=== PATIENT | male | born 1965 | race Caucasian/White ===

== ENCOUNTER → 2016-10-30 | Outpatient (CLI) | payer OTHER ==
--- NOTE | 2016-10-30 13:28 | US ---
Ultrasound Venous Duplex Doppler left Arm History: Left neck swelling, previous neck cancer and surgery. Findings: Ultrasound venous duplex/Doppler imaging of left internal jugular vein, subclavian vein, ax illary vein, cephalic vein, brachial vein, basilic vein, radial vein, and ulnar veins demonstrate nor mal compressibility, color flow, and Doppler flow without evidence of deep venous thrombosis. Impression: No deep venous thrombosis left arm. A Call Requested test result notification was sent via the [employer] service, 1:26:01 PM, 10/30/2016, Mob[employer] Message ID [id number].
--- NOTE | 2016-10-30 16:02 | CT ---
CT neck without IV contrast dated October 30, 2016 Indication: Rapid onset of left-sided neck swelling. History of head and neck cancer with chemoradiat ion and modified left neck dissection. Technique: 1.5-mm thick helically acquired slices were obtained through the neck. No IV or oral contr ast was administered. IV contrast was not administered due to concern of patient state of dehydration . Dose reduction techniques were utilized. Comparison: None. Findings: Diffuse edema and swelling extends from the level of the left temporozygomatic arch inferi tiago to the level of the clavicle heads. The edema is superficial and deep to the platysma muscle inv olving the buckle, chief engineer drilling and recovery, jugulodigastric, and posterior chains of the neck. No well circumscrib ed fluid collection, lymphadenopathy, or mass. The left parotid gland is diffusely edematous and enla rged relative to the small predominantly fatty replaced right parotid gland. No calculi in the paroti d gland or along the course of Stensen's duct. Minimal blunting and fullness of the left fossa of Rosenmuller, vallecula and piriform sinuses are li ashwin due to radiation therapy. The epiglottis is normal. The airway is minimally shifted to the left. No compression or narrowing of the airway. The subglottic airway is widely patent. The thyroid gland is normal in size and minimally heterogeneous. No discrete nodule or mass. No bone lesions. Lung apices are clear. Impression: 1. Diffuse left neck edema and swelling extending from the frontozygomatic arch to the supraclavicula r distribution. No abscess, mass, or pathologically enlarged lymph node. 2. No compromise of the airway. Normal epiglottis. Comment: Results were discussed with Dr. Migue Woods shortly after study completion.
--- NOTE | 2016-10-30 16:58 | CT ---
CT Head (Without Contrast) October 30, 2016 Indication: 51-year-old man with left-sided neck pain and swelling. Patient undergoing chemoradiation therapy for left-sided head and neck cancer. Technique: Standard noncontrast head CT protocol utilizing 5 mm thick collimated slices and field of view of 23 cm. Dose reduction techniques were utilized. Comparison: None. Findings: No intracranial hemorrhage, mass lesion, swelling, or extraaxial fluid collection. The vent ricles are normal caliber and midline. The vargas and white matter has normal attenuation. No evidence of ischemia. The paranasal sinuses are well aerated and clear. No lytic or blastic bone lesions. Diffuse edema involves the superficial and deep soft tissue planes of the left farm marketer and buccal space. No discrete fluid collection or mass. The imaged portion of the left parotid gland is diffusel y enlarged and edematous relative to the predominantly fatty-replaced right parotid gland. The left s antony of the hypopharynx has minimal fullness and blunting of the fossa of Rosenmuller, likely sequela from therapy. Impression: 1. Normal brain. No acute intracranial hemorrhage, mass, or evidence of ischemia. 2. Left-sided facial edema without discrete mass or abscess. Comment: Case was discussed with Dr. Woods at time of study completion.
== END ==
LOC: FIMAGING 12:12
PROVIDERS: ATTEND Radiology Radiation Oncology
DX: C10.9 Malignant neoplasm of oropharynx, unspecified (principal); R60.0 Localized edema

== ENCOUNTER 2016-10-31 09:30 | Inpatient (IN) | payer OTHER ==
[2016-10-31] MEDS ORDERED: DEXAMETHASONE 10 MG/ML VIAL IVP ONE (10:10)
--- NOTE | 2016-10-31 10:16 | EDPHY ---
H & P Stated Complaint: left facial & neck [id number], L lymph node r/t cancer removed 07/31/16, Time Seen by Provider: 10/31/16 09:54 - Personal History Current Tetanus/Diphtheria Vaccine: Yes Current Tetanus Diphtheria and Acellular Pertussis (TDAP): Yes - Medical/Surgical History Hx Asthma: No Hx Chronic Respiratory Disease: No Hx Diabetes: No Hx Cardiac Disease: No Hx Renal Disease: No Hx Cirrhosis: No Hx Alcoholism: No Hx HIV/AIDS: No Hx Splenectomy or Spleen Trauma: No Other PMH: HTN, Depression, L knee surgery, EVELYN, throat ca, removal of lymph nodes at neck 07/31/16, - Social History Smoking Status: Never smoked Constitutional: Initial Vital Signs Temperature (C) 37.2 C 10/31/16 09:49 Heart Rate 110 H 10/31/16 09:49 Respiratory Rate 18 10/31/16 09:49 Blood Pressure 152/98 H 10/31/16 09:49 O2 Sat (%) 93 10/31/16 09:49 O2 Delivery Mode Room Air Allergies/Adverse Reactions: No Known Allergies Allergy (Verified 10/12/16 22:58) Home Medications: Medication Instructions Recorded Ondansetron [Zofran Odt] 8 mg PO Q8 PRN 10/13/16 Prochlorperazine Maleate 10 mg PO Q6 PRN 10/13/16 [Compazine 10mg (*)] buPROPion XL [Wellbutrin 150mg XL] 150 mg PO DAILY 10/13/16 FLUoxetine [Prozac 20 MG (*)] 20 mg TUBE DAILY #0 cap 10/19/16 Nystatin [Mycostatin Oral Liquid 500,000 unit PO QID #0 ml 10/19/16 (*)] Pantoprazole Sodium [Protonix 40mg 40 mg PO DAILY #0 tab 10/19/16 (*)] Sennosides [Senexon Oral Liquid] 8.8 - 17.6 mg TUBE BID #0 udl 10/19/16 fentaNYL [Duragesic 50 MCG Patch 50 mcg TD Q72H #0 patch 10/19/16 (*)] morphINE [Roxanol 10 mg/0.5 ml 10 mg PO Q3 PRN #0 udsyr 10/19/16 oral soln (*)] Medical Decision Making ED Course/Re-evaluation: CHIEF COMPLAINT: Left face and neck swelling HISTORY OF PRESENT ILLNESS: 51-year-old gentleman who has had neck cancer. He had a left neck dissection with multiple lymph node retrieval. He has been receiving radiation therapy. His radiation oncologist Dr. Woods called this morning to state this patient has had increased swelling in his left neck and face with some superficial cellulitis over the last several days. He stated that a CT scan has been performed and does not show an abscess. He also stated that a ultrasound was done and there is no evidence of venous thrombosis. This CT scan reveals inflammation of the parotid gland and some superficial cellulitis and inflamed tissue. The patient was asked to come to the emergency department yesterday however he decided to sleep at home last night and then come in today. I also spoke with Dr. Mitch Godinez before the patient's arrival who is this patient's head and neck surgeon. He knew the patient was having this problem and he is recommending steroids and antibiotics specifically to cover staph. REVIEW OF SYSTEMS: A 10 point review of systems was performed and is negative with the exception of the elements mentioned in the history of present illness. PHYSICAL EXAM: HR, BP, O2 Sat, RR. Temp noted General Appearance: Alert, well hydrated, appropriate, and non-toxic appearing. Head: Atraumatic without scalp tenderness or obvious injury Eyes: Pupils equal, round, reactive to light and accommodation, EOMI, no trauma , no injection. Ears: Clear bilaterally, no perforation, normal landmarks Nose: Atraumatic, no rhinorrhea, clear. Throat: There is no erythema or exudates, no lesions, normal tonsils, mucus membranes moist. Neck: Mild superficial cellulitis on the left of the neck and face up to the ear. With swelling. The surgical incision is well healed and intact. Supple, 2 + carotid upstroke. Respiratory: No retractions, no distress, no wheezes, and no accessory muscle use. Lungs are clear to auscultation bilaterally. Cardiovascular: Regular rate and rhythm, no murmurs, rubs, or gallops. Bilateral carotid, radial, dorsalis pedis, and posterior tibial pulses intact. Good capillary refill all extremities. Gastrointestinal: Abdomen is soft, nontender, non-distended, no masses, no rebound, no guarding, no peritoneal signs. Musculoskeletal: Normal active ROM of all extremities, atraumatic. Neurological: Alert, appropriate, and interactive. The patient has normal DTRs and non-focal cranial nerves, motor, sensory, and cerebellar exam. Skin: No rashes, good turgor, no nodules on palpation. Past medical history: Head and neck cancer Past surgical history: Left neck dissection Family history: Noncontributory Social history: , employed, does not abuse drugs or alcohol DIAGNOSTICS/PROCEDURES/CRITICAL CARE TIME: I have reviewed the recent CT scan and ultrasound of the head and neck DIFFERENTIAL DIAGNOSIS: Includes but is not limited to abscess, venous occlusion, carotid occlusion, submandibular or parotid abscess, lymphadenitis, surgical hematoma, parotiditis. MEDICAL DECISION MAKING: This patient does have slight tachycardia has had a low-grade fever for a couple of days. He has also had some sweats at night sweating through the sheets. Will do a sepsis workup on him although he does not appear septic and has good blood pressure. In addition, we will give him 10 of IV Decadron. Will start vancomycin as most of these infections are Staph related as soon as I assess this patient's kidney function. I will admit the patient hospitalist. Dr. Godinez and Dr. Woods the radiation oncologist will consult in addition to ID as deemed necessary by the hospitalist. Based on his kidney function and weight we have dosed him 18 milligrams/ kilogram or 1250 mg of vancomycin to give him a maximal loading dose. I will admit him to the hospitalist - Data Points Laboratory Results: Laboratory Results 10/31/16 10:10 10/31/16 10/31/16 10/31/16 10:30 10:13 10:10 WBC 11.66 H 10^3/uL (3.80-9.50) RBC 3.53 L 10^6/uL (4.40-6.38) Hgb 10.9 L g/dL (13.7-17.5) POC Hgb 11.2 L gm/dL (14.5-17.3) Hct 30.7 L % (40.0-51.0) POC Hct 33 L % (42.8-50.6) MCV 87.0 fL (81.5-99.8) MCH 30.9 pg (27.9-34.1) MCHC 35.5 g/dL (32.4-36.7) RDW 15.6 H % (11.5-15.2) Plt Count 531 H 10^3/uL (150-400) MPV 9.5 fL (8.7-11.7) Neut % (Auto) 85.6 H % (39.3-74.2) Lymph % (Auto) 2.3 L % (15.0-45.0) Morton % (Auto) 11.2 % (4.5-13.0) Eos % (Auto) 0.1 L % (0.6-7.6) Baso % (Auto) 0.2 L % (0.3-1.7) Nucleat RBC Rel Count 0.0 % (0.0-0.2) Absolute Neuts (auto) 9.98 H 10^3/uL (1.70-6.50) Absolute Lymphs (auto) 0.27 L 10^3/uL (1.00-3.00) Absolute Monos (auto) 1.31 H 10^3/uL (0.30-0.80) Absolute Eos (auto) 0.01 L 10^3/uL (0.03-0.40) Absolute Basos (auto) 0.02 10^3/uL (0.02-0.10) Absolute Nucleated RBC 0.00 10^3/uL (0-0.01) Immature Gran % 0.6 % (0.0-1.1) Immature Gran # 0.07 10^3/uL (0.00-0.10) PT Pending INR Pending APTT Pending VBG Lactic Acid Pending POC Sodium 134 mEq/L (134-144) Sodium Pending POC Potassium 3.9 mEq/L (3.3-5.0) Potassium Pending POC Chloride 94 L mEq/L (96-108) Chloride Pending Carbon Dioxide Pending Anion Gap Pending POC BUN 15 mg/dL (7-23) BUN Pending Creatinine Pending POC Creatinine 0.8 mg/dL (0.8-1.5) Estimated GFR Pending Glucose Pending POC Glucose 124 H mg/dL (70-100) Calcium Pending Total Bilirubin Pending Medications Given: Discontinued Medications Dexamethasone (Decadron Injection) 10 mg IVP EDNOW ONE Stop: 10/31/16 10:11 Last Admin: 10/31/16 10:27 Dose: 10 mg Point of Care Test Results: 10/31/16 10:13 POC Sodium 134 POC Potassium 3.9 POC Chloride 94 L POC BUN 15 POC Creatinine 0.8 POC Glucose 124 H Departure - Departure Disposition: [facility] Inpatient Acute Clinical Impression: Throat cancer, Parotid swelling, Parotiditis Condition: Fair Referrals: COLE LEGGETT [Primary Care Provider] - As per Instructions
[2016-10-31 10:25] LABS: % IMMATURE GRANULYOCYTES 0.6 % (0.0-1.1); ABSOLUTE IMMATURE GRANULOCYTES 0.07 10^3/uL (0.00-0.10); ADD DIFF? NO; ADD MORPH? NO; ADD SCAN? NO; ATYPICAL LYMPHOCYTE FLAG 10 (0-99); FRAGMENT RBC FLAG 0 (0-99); HEMATOCRIT 30.7 % (40.0-51.0); HEMOGLOBIN 10.9 g/dL (13.7-17.5); LEFT SHIFT FLG 10 (0-99); LIPEMIA HEMOLYSIS FLAG 90 (0-99); MEAN CELL HEMOGLOBIN 30.9 pg (27.9-34.1); MEAN CELL HEMOGLOBIN CONCENTR. 35.5 g/dL (32.4-36.7); MEAN PLATELET VOLUME 9.5 fL (8.7-11.7); PLATELET CLUMPS FLAG 0 (0-99); PLATELET COUNT 531 10^3/uL (150-400); RED BLOOD CELL COUNT 3.53 10^6/uL (4.40-6.38); RED CELL DISTRIBUTION WIDTH 15.6 % (11.5-15.2)
[2016-10-31 10:37] LABS: INR 1.09 (0.83-1.16)
[2016-10-31 10:38] LABS: APTT 28.4 SEC (23.0-38.0)
[2016-10-31 10:53] LABS: ANION GAP 11 mEq/L (8-16); BILIRUBIN,TOTAL 0.5 mg/dL (0.1-1.4); CARBON DIOXIDE 28 mEq/l (22-31); CHLORIDE 95 mEq/L (97-110); CREATININE 0.9 mg/dL (0.7-1.3); GLOMERULAR FILTRATION RATE > 60; GLUCOSE 119 mg/dL (70-100); POTASSIUM 4.5 mEq/L (3.5-5.2); SODIUM 134 mEq/L (134-144)
[2016-10-31] MEDS ORDERED: VANCOMYCIN 1.25 GM in D5W 250 ML IV ONE (11:00)
[2016-10-31] MEDS ORDERED: ONDANSETRON DISINTEGRATING 4 MG TAB PO PRN (12:48)
[2016-10-31] MEDS ORDERED: ACETAMINOPHEN 325 MG TAB PO PRN (12:48)
[2016-10-31] MEDS ORDERED: PROMETHAZINE HCL 25 MG/ML VIAL IVP PRN (12:48)
[2016-10-31] MEDS ORDERED: LORazepam 2 MG/ML INJ IVP PRN (12:48)
[2016-10-31] MEDS ORDERED: ONDANSETRON 4 MG/2 ML VIAL IVP PRN (12:48)
[2016-10-31] MEDS ORDERED: PROTOCOL MAGNESIUM 1 DOSE IV PRN (12:55)
[2016-10-31] MEDS ORDERED: MAGNESIUM HYDROXIDE 30 ML UDCUP PO PRN (12:55)
[2016-10-31] MEDS ORDERED: LACTULOSE 20 GM/30 ML UDCUP PO PRN (12:55)
[2016-10-31] MEDS ORDERED: MBX SOLN 30 ML BOTTLE PO PRN (12:55)
[2016-10-31] MEDS ORDERED: PROTOCOL POTASSIUM 1 DOSE MISC PRN (12:55)
[2016-10-31] MEDS ORDERED: PROTOCOL K PHOSPHATE 1 DOSE IV PRN (12:55)
[2016-10-31] MEDS ORDERED: POLYETHYLENE GLYCOL 3350 17 GM PKT PO PRN (12:55)
[2016-10-31] MEDS ORDERED: BISACODYL 10 MG SUPP PR PRN (12:55)
[2016-10-31] MEDS ORDERED: fentaNYL 50 MCG PATCH TD SCH (13:00)
--- NOTE | 2016-10-31 13:48 | GHP ---
[f rep st] HISTORY AND PHYSICAL DATE OF ADMISSION: 10/31/2016 CHIEF COMPLAINT: Swelling and pain on the left neck. HISTORY: This is a 51-year-old man with past medical history that includes stage DIPIKA squamous cell c arcinoma of the head and neck, who presents with about 2 days of worsening swelling and pain of the l eft neck, as well as low-grade fevers at home. The patient has been through a left neck dissection a nd lymph node retrieval, as well as multiple radiation treatments to the left side of his face and ne ck; however, there was no significant associated swelling up until a couple days ago. He is followed by Dr. Godinez of ENT, who had performed both a CT scan and ultrasound that were concerning for ce llulitis without abscess, for which surgeon was recommending IV antibiotics and steroids. The patien t was requested to come to the ER yesterday; however, elected to stay at home and come in today. He notes that he had an okay night, other than a low-grade fever. He has not had any trouble breathing. He does not take anything orally by mouth, but states he has been managing his secretions well. He states, secondary to the surgery, he does not really make much saliva anyway. PAST MEDICAL HISTORY: 1. 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 2. Chronic dysphagia and PEG tube dependence. 3. Mucositis. 4. Hypertension. PAST SURGICAL HISTORY: 1. Neck dissection. 2. PEG placement. FAMILY HISTORY: Mother with ovarian cancer. Father with hypertension. SOCIAL HISTORY: Patient is . He is lifetime nonsmoker. He denies significant alcohol use. He works in finance. REVIEW OF SYSTEMS: A 10-point review of systems obtained and negative, except as per HPI. MEDICATIONS: 1. Pantoprazole. 2. Roxanol. 3. Fentanyl patch. 4. Bupropion. ALLERGIES: No known drug allergies. PHYSICAL EXAM: VITAL SIGNS: BP 127/97, heart rate 95, respiratory rate 16, O2 saturation is 96% on room air, temperature is 37. GENERAL APPEARANCE: This is a well-developed, well-nourished man. He is awake and alert. He is in mild distress. EYES: Anicteric. HENT: There is erythema on the left neck and face with associated edema that is firm across the entire left neck and including the ear. There is no fluctuance or drainage. Surgical incision is healed. Oropharynx is significant for dec reased range of motion in the jaw. Patient is able to insert minimally 1-1/2 fingers in his mouth. He says he usually can insert 3. Tongue is covered with a thick white plaque without other ulceratio ns or lesions. CARDIOVASCULAR: RRR. No MRG. PULMONARY: CTA bilaterally. Normal work of breathin g. ABDOMEN: Soft, nontender, nondistended. EXTREMITIES: No clubbing, cyanosis or edema. SKIN: O ther than neck, warm, dry, well perfused. CLINICAL DATA: Labs reviewed, significant for a white blood cell count of 11.6, hematocrit of 30.7, platelets of 531. Coags are within normal limits. Lactic acid is 0.7. Chemistry is unremarkable, o ther than a glucose of 119. Head CT, personally reviewed and interpreted, this is from 10/30/2016, shows left-sided facial edema without discrete mass or abscess. There is no compromise of the airway. Epiglottis appears normal. Left upper extremity ultrasound shows no DVT. ASSESSMENT AND PLAN: This is a 51-year-old man with a fairly recent diagnosis of stage IV squamous c ell carcinoma of the head and neck, presenting with cellulitis/parotiditis. 1. Cellulitis/parotiditis without airway compromise or clear evidence of abscess. He has been start ed on IV vancomycin and Decadron. ENT has been consulted and will be evaluating the patient while in -house. 2. Stage IV squamous cell carcinoma of head and neck. The patient has been undergoing chemotherapy with cisplatin as well as radiation. He is followed by Dr. Collins of oncology. 3. Chronic dysphagia. He is PEG tube dependent. Will continue tube feeds. 4. Pancytopenia. Currently has an increased white blood cell count and platelet count consistent wi th acute infectious process, but otherwise his counts are stable. Will continue to monitor while in- house. 5. Anxiety/depression. Will continue his bupropion and p.r.n. benzos. 6. Disposition: Inpatient status given high risk, presenting issues. 7. Patient is new to my care. Old records reviewed and summarized as per HPI and past medical histo ry. Care plan reviewed with Dr. Johns in the emergency department. Further history obtained from patient's , present at bedside. /[id number]/MODL
[2016-10-31] MEDS: HYDROmorphONE/DILAUDID 1 MG/ML SYR IVP PRN ×3 (14:36→22:04)
[2016-10-31] MEDS: DEXAMETHASONE 4 MG/ML VIAL IVP SCH ×2 (17:58→23:19)
[2016-10-31] MEDS ORDERED: NS W/ 20 KCl/L 1,000 ML IV SCH (18:00)
[2016-10-31 19:44] LABS: POTASSIUM 4.4 mEq/L (3.5-5.2)
[2016-10-31] MEDS: VANCOMYCIN HCL/NORMAL SALINE 250 ML IV SCH (21:56)
[2016-10-31] MEDS: morphINE 10 MG/0.5 ML UDSYR PO PRN (22:05)
[2016-10-31] MEDS: SENNOSIDES/DOCUSATE SODIUM TAB PO SCH (22:09)
[2016-11-01] MEDS: HYDROmorphONE/DILAUDID 1 MG/ML SYR IVP PRN ×4 (01:45→21:50)
[2016-11-01 05:31] LABS: % IMMATURE GRANULYOCYTES 0.5 % (0.0-1.1); ABSOLUTE IMMATURE GRANULOCYTES 0.06 10^3/uL (0.00-0.10); ADD DIFF? NO; ADD MORPH? NO; ADD SCAN? NO; ATYPICAL LYMPHOCYTE FLAG 0 (0-99); FRAGMENT RBC FLAG 0 (0-99); HEMATOCRIT 29.2 % (40.0-51.0); HEMOGLOBIN 9.9 g/dL (13.7-17.5); LEFT SHIFT FLG 30 (0-99); LIPEMIA HEMOLYSIS FLAG 90 (0-99); MEAN CELL HEMOGLOBIN 29.6 pg (27.9-34.1); MEAN CELL HEMOGLOBIN CONCENTR. 33.9 g/dL (32.4-36.7); MEAN CELL VOLUME 87.4 fL (81.5-99.8); MEAN PLATELET VOLUME 9.7 fL (8.7-11.7); PLATELET CLUMPS FLAG 0 (0-99); PLATELET COUNT 512 10^3/uL (150-400); RED BLOOD CELL COUNT 3.34 10^6/uL (4.40-6.38); RED CELL DISTRIBUTION WIDTH 15.4 % (11.5-15.2)
[2016-11-01 05:50] LABS: ANION GAP 9 mEq/L (8-16); CARBON DIOXIDE 27 mEq/l (22-31); CHLORIDE 100 mEq/L (97-110); CREATININE 0.7 mg/dL (0.7-1.3); GLOMERULAR FILTRATION RATE > 60; GLUCOSE 125 mg/dL (70-100); MAGNESIUM 2.1 mg/dL (1.6-2.3); POTASSIUM 4.7 mEq/L (3.5-5.2); SODIUM 136 mEq/L (134-144)
[2016-11-01] MEDS: DEXAMETHASONE 4 MG/ML VIAL IVP SCH ×3 (06:42→17:40)
[2016-11-01] MEDS: SENNOSIDES/DOCUSATE SODIUM TAB PO SCH ×2 (10:08→20:46)
[2016-11-01] MEDS: PANTOPRAZOLE SODIUM 40 MG TAB PO SCH (10:08)
[2016-11-01] MEDS: buPROPion XL 150 MG TAB PO SCH (10:08)
[2016-11-01] MEDS: ENOXAPARIN 40 MG/0.4 ML SYR SC SCH ×2 (10:11→14:11)
--- NOTE | 2016-11-01 11:56 | SOAPPROG ---
SOAP Progress Note Assessment/Plan: Assessment: 51 year old male admitted for IV antibiotics/steroids for left parotitis. He notes some improvement overnight. Still has induration of the left parotid. No fluctuance. I discussed with Dr. Godinez and we recommend 1 more day of IV antibiotics/ steroids with discharge home first thing tomorrow AM. OK for hospitalist to discharge. Recommend discharge home tomorrow AM on a 10 day course of oral antibiotics with staph coverage. OK to stop decadron after today's doses. Patient should follow-up in our office on Friday -- we will call him to arrange this. 11/01/16 11:53 Subjective: 51 year old male history of stage DIPIKA squamous cell carcinoma of the head and neck admitted for diagnosis of left parotitis. Patient notes some improvement overnight. Able to open his mouth more, now. Taking minimal PO. Objective: Vital Signs Temp Pulse Resp BP Pulse Ox 36.3 C 92 16 148/98 H 96 11/01/16 08:00 11/01/16 08:00 11/01/16 08:00 11/01/16 08:00 11/01/16 08:00 Microbiology 10/31/16 11:34 Gram Stain - Final Face - Aspirate Laboratory Results 11/01/16 05:08 11/01/16 05:08 10/31/16 11/01/16 11/02/16 05:59 05:59 05:59 Intake Total 750 Output Total 2049 Balance -1300 PT 14.0 SEC (12.0-15.0) 10/31/16 10:10 INR 1.09 (0.83-1.16) 10/31/16 10:10 Mild trismus Induration of left parotid -- no fluctuance No significant purulence expressed from left stensen's duct OP normal ICD10 Worksheet Patient Problems: Problems Problem Status Diagnosed Dehydration Acute Metastatic squamous cell carcinoma Acute Parotid swelling Acute Parotiditis Acute Squamous cell carcinoma of head and neck Acute Throat cancer Acute Throat pain Acute Vomiting Acute
[2016-11-01] MEDS: VANCOMYCIN HCL/NORMAL SALINE 250 ML IV SCH (13:25)
[2016-11-01] MEDS: LISINOPRIL 10 MG TAB PO SCH (14:11)
[2016-11-01] MEDS: FLUoxetine 20 MG CAP PO SCH (14:13)
--- NOTE | 2016-11-01 15:25 | HOSPPROG ---
Hospitalist Progress Note Assessment/Plan: 51 yo with hx of stage DIPIKA SCC head and neck admitted with parotiditis and cellulitis # parotiditis/cellulitis: being treated with vanco/IV steroids and being followed by ENT and improving. Continue current treatment, patient notes that ear is hurting more despite improvement in swelling etc, this is likely 2/2 not having pain meds for > 12 hours rather than a sign of treatment failure # stage 4 SCC head and neck: s/p neck dissection and xrt, followed by ENT/ oncology # dysphagia: TF dependent # htn: per patient he has been off of lisinopril for some time but given his bp being slightly up will restart now # mdd/anxiety: continue welbutrin/prozac # dispo: IP status, will likely dc in next 24 hours Subjective: patient upset about his TFs being held yesterday as well as that his lisinopril wasn't given today, he feels like his ear hurts more, he has not been taking pain meds all day Objective: Vital Signs Temp Pulse Resp BP Pulse Ox 36.3 C 92 16 148/98 H 96 11/01/16 08:00 11/01/16 08:00 11/01/16 08:00 11/01/16 08:00 11/01/16 08:00 Microbiology 10/31/16 11:34 Gram Stain - Final Face - Aspirate Laboratory Results 11/01/16 05:08 11/01/16 05:08 10/31/16 11/01/16 11/02/16 05:59 05:59 05:59 Intake Total 750 Output Total 2049 Balance -1300 PT 14.0 SEC (12.0-15.0) 10/31/16 10:10 INR 1.09 (0.83-1.16) 10/31/16 10:10 awake alert anicteric swelling/erthema/edema to left side of neck up to cheek, ear edema down warm dry well perfused - Time Spent With Patient Time Spent with Patient: greater than 35 minutes Time Spent with Patient: Greater than 35 minutes spent on this patients care, greater than 50% of time spent counseling, educating, and coordinating care regarding the above mentioned plan. ICD10 Worksheet Patient Problems: Problems Problem Status Diagnosed Dehydration Acute Metastatic squamous cell carcinoma Acute Parotid swelling Acute Parotiditis Acute Squamous cell carcinoma of head and neck Acute Throat cancer Acute Throat pain Acute Vomiting Acute
[2016-11-01] MEDS: morphINE 10 MG/0.5 ML UDSYR PO PRN ×2 (17:30→22:15)
[2016-11-01 19:17] VITALS: RESP 16
[2016-11-02] MEDS: DEXAMETHASONE 4 MG/ML VIAL IVP SCH ×3 (00:44→12:56)
[2016-11-02] MEDS: VANCOMYCIN HCL/NORMAL SALINE 250 ML IV SCH ×2 (00:45→13:03)
[2016-11-02] MEDS: HYDROmorphONE/DILAUDID 1 MG/ML SYR IVP PRN (06:23)
[2016-11-02 07:38] VITALS: BP 119/81; PULSE 73; TEMP 98.4; O2SAT 94
[2016-11-02] MEDS: FLUoxetine 20 MG CAP PO SCH (09:19)
[2016-11-02] MEDS: buPROPion XL 150 MG TAB PO SCH (09:19)
[2016-11-02] MEDS: PANTOPRAZOLE SODIUM 40 MG TAB PO SCH (09:19)
[2016-11-02] MEDS: LISINOPRIL 10 MG TAB PO SCH (09:19)
[2016-11-02] MEDS: SENNOSIDES/DOCUSATE SODIUM TAB PO SCH (09:20)
[2016-11-02] MEDS: morphINE 10 MG/0.5 ML UDSYR PO PRN (09:50)
--- NOTE | 2016-11-02 11:19 | SOAPPROG ---
SOAP Progress Note Assessment/Plan: Assessment: Parotitis, responding to antibiotics Head and neck cancer Possible thrush Plan:Home today on po antibiotics, follow up next week, resume nystatin 11/02/16 11:16 Subjective: Feels better Objective: Vital Signs Temp Pulse Resp BP Pulse Ox 98.4 F 73 16 119/81 H 94 11/02/16 07:36 11/02/16 07:36 11/02/16 07:36 11/02/16 07:36 11/02/16 07:36 Microbiology 10/31/16 11:34 Gram Stain - Final Face - Aspirate Laboratory Results 11/01/16 05:08 11/01/16 05:08 11/01/16 11/02/16 11/03/16 05:59 05:59 05:59 Intake Total 750 3160 Output Total 2050 560 900 Balance -1300 2600 -900 PT 14.0 SEC (12.0-15.0) 10/31/16 10:10 INR 1.09 (0.83-1.16) 10/31/16 10:10 Physical Exam - Physical Exam General Appearance: mild distress EENT: other (Thrush) Neck: other (Left parotid swelling, with some erythema) ICD10 Worksheet Patient Problems: Problems Problem Status Diagnosed Dehydration Acute Metastatic squamous cell carcinoma Acute Parotid swelling Acute Parotiditis Acute Squamous cell carcinoma of head and neck Acute Throat cancer Acute Throat pain Acute Vomiting Acute
[2016-11-02] MEDS ORDERED: NYSTATIN SUSP 500000 UNIT/5 ML UDCUP PO SCH (12:00)
--- NOTE | 2016-11-02 14:54 | PDIAF ---
- Diagnosis Code Status: Full Code - Medication Management Discharge Medications: Medications to Continue on Transfer buPROPion XL [Wellbutrin 150mg XL] 150 mg PO DAILY 10/13/16 [Last Taken 10/30/16 ] Pantoprazole Sodium [Protonix 40mg (*)] 40 mg PO DAILY #0 tab 10/19/16 [Last Taken 10/30/16] FLUoxetine [Prozac 20 MG (*)] 20 mg PO DAILY 11/01/16 [Last Taken 10/29/16] Lisinopril [Zestril 10 mg (*)] 10 mg PO DAILY 11/01/16 [Last Taken 10/29/16] Acetaminophen [Tylenol 325mg (*)] 650 mg PO Q4HRS PRN #0 tab 11/02/16 [Last Taken Unknown] Amoxicillin/Clavulanate Pot [Augmentin 875 MG TAB (*)] 875 mg PO BID #20 tab 05/12 [Last Taken Unknown] Polyethylene Glycol 3350 [Miralax 17 gm (*)] 17 gm PO DAILY PRN #0 pkt 11/02/16 [Last Taken Unknown] Sennosides/Docusate Sodium [Senokot-S] 1 - 2 tab PO BID #0 tab 11/02/16 [Last Taken Unknown] guaiFENesin [Mucinex 600 MG (*)] 600 mg PO BID #0 tab.er 11/02/16 [Last Taken Unknown] morphINE [Roxanol 10 mg/0.5 ml oral soln (*)] 10 mg PO BID PRN 14 Days 11/02/16 [Last Taken Unknown] Discharge Medications: Refer to the Discharge Home Medication list for PRN reason. - Orders Services needed: Home Care, Registered Nurse, Physical Therapy, Occupational Therapy Home Care Face to Face: I certify that this patient was under my care and that I had the required [id number] encounter meeting the encounter requirements on the discharge day. My findings support the fact that the patient is homebound as defined in CMS Chapter 7 Medicare Benefits Manual 30.1.1, The condition of the patient is such that there exists a normal inability to leave home and consequently, leaving home would require a considerable and taxing effort. Diet Recommendation: other (tube feeds) - Follow Up Care Current Providers and Referrals: Clarke Bradley PA [Physician [facility]] - COLE LEGGETT [Primary Care Provider] - As per Instructions Migue Collins MD [Medical Doctor] -
--- NOTE | 2016-11-02 14:58 | PDDCSUM ---
Discharge Summary Discharge Summary: Dates of service 10/31-11/02/16 Consultations: ENT Oncology Hospital course by problem: # cellulitis/parotiditis: in setting of head and neck cancer s/p xrt, sxs have improved, has been treated with vanco and will dc on augmentin. f/u with ent # stage DIPIKA SCC head and neck: s/p chemo and xrt, followed by ent/onc/rad onc. # thrush/mucositis: will resume nystatin, magic mouthwash # dysphagia: PEG tube dependent, continue usual TFs # HTN: resumed lisinopril Dc home f/u with ENT/oncology/PCP > 35 min spent in discharge, more than half in coordination of care
[2016-11-02] MEDS ORDERED: guaiFENesin 600 MG TAB.ER PO SCH (21:00)
== END 2016-11-02 14:30 | disposition home health service (06) | DRG 155 ==
LOC: F1N 11:48
PROVIDERS: ADMIT Internal Medicine; ATTEND Internal Medicine
DX: K11.20 Sialoadenitis, unspecified (principal); L03.221 Cellulitis of neck; Z85.89 Personal history of malignant neoplasm of other organs and systems; R13.10 Dysphagia, unspecified; Z93.1 Gastrostomy status; I10 Essential (primary) hypertension; F32.9 Major depressive disorder, single episode, unspecified; F41.9 Anxiety disorder, unspecified; B37.0 Candidal stomatitis
CPT/HCPCS: 82947-QW; 96365; 96366; 97161-GP; J1100; J1170; J1650; J3370

== ENCOUNTER → 2016-12-04 | Day surgery (SDC) | payer OTHER ==
[~2016-12-04] MED LIST: LIDOCAINE 1% 30 ML SDV ONE
--- NOTE | 2016-12-04 18:25 | IR ---
Fluoroscopy less than 1 hour Indication: G-tube removal. No longer needs G-tube. Informed consent: Obtained from the patient. Risks and benefits were discussed. Crosscutting Measure: Patient's current list of medications including all known prescriptions, over- the-counters, herbals, and vitamin/mineral/dietary supplements are reviewed. Medications' name, dosa ge, frequency, and route of administration are confirmed. The patient is a non-smoker. Prophylactic Antibiotic: Cefazolin was not ordered and administered for antimicrobial prophylaxis be cause it was not medically necessary. VTE Prophylaxis: There is not an order for VTE prophylaxis to be given within 24 hours of the proced ure end time. VTE prophylaxis was not given because it was not medically necessary. Technique: Patient was placed in supine position. A "timeout" procedure was performed to identify t he correct patient and the correct procedure. 1% Xylocaine was used for local anesthetic. All napaimute ents of maximal sterile barrier technique including cap, mask, sterile gown, sterile gloves, large st erile sheet, hand hygiene, and 2% chlorhexidine for cutaneous antisepsis, followed. The balloon was deflated. There was some difficulty getting the G-tube out initially. Numbing medicin e was applied to the incision site, and then the G-tube actually came out fairly easily without signi ficant discomfort to the patient. Incidentally noted is the fact that the T-fasteners are still present. I am assuming they are along t he undersurface of the stomach wall. Interestingly, they have not passed. Fluoroscopy: 0.1 minutes, 1 image Impression: 1. G-tube removed. 2. The T-fasteners used to secure the G-tube at the time of placement are still present, and have not passed after they have been cut. 3. I don't think the above will pose a problem. 4. Stomal tissue extrinsic to the incision site. Instructions were given to the patient on care of th e incision site. Dressing materials were given to the patient.
== END | disposition home or self-care (01) ==
LOC: FIMAGING 11:02
PROVIDERS: ATTEND Radiology Diagnostic Radiology
PROC: 0DP6XUZ Removal of Feeding Device from Stomach, External Approach (ICD-10-PCS; principal; 2016-12-04)
PROC: BD12ZZZ Fluoroscopy of Stomach (ICD-10-PCS; principal; 2016-12-04)
DX: Z43.1 Encounter for attention to gastrostomy (principal)

== ENCOUNTER → 2016-12-12 | Outpatient (CLI) | payer OTHER | LOC: FIMAGING 12:21 | PROVIDERS: ATTEND Radiology Diagnostic Radiology | DX: Z43.1 Encounter for attention to gastrostomy (principal) ==